=== PATIENT | female | born 1995 | race Caucasian/White ===

== ENCOUNTER 2020-10-26 20:00 | Emergency (ER) | payer BC ==
[~2020-10-26] VITALS: Ht 154.9 cm; Wt 83.2 kg
[2020-10-26 20:14] VITALS: BP 119/73; TEMP 97.9
[2020-10-26 21:21] VITALS: PULSE 82
== END 2020-10-26 21:21 | disposition home or self-care (01) ==
LOC: COL.ER 20:00
DX: S93.401A Sprain of unspecified ligament of right ankle, initial encounter (principal); W01.0XXA Fall on same level from slipping, tripping and stumbling without subsequent striking against object, initial encounter; Y93.01 Activity, walking, marching and hiking; Y92.830 Public park as the place of occurrence of the external cause